=== PATIENT | female | born 1990 | race Caucasian/White ===

== ENCOUNTER 2018-07-13 11:30 | Emergency (ER) | payer BC ==
[2018-07-13] MEDS: TETRACAINE 0.5% 4 ML OPH LEFT EYE (12:39)
[2018-07-13] MEDS: FLUORESCEIN STRIP LEFT EYE (12:39)
[2018-07-13] MEDS: HYDROCODONE/APAP (5/325) TAB PO (12:55)
== END 2018-07-13 12:57 | disposition home or self-care (01) ==
LOC: FTE 11:30
DX: S05.92XA Unspecified injury of left eye and orbit, initial encounter (principal); W22.8XXA Striking against or struck by other objects, initial encounter; Y92.9 Unspecified place or not applicable
CPT/HCPCS: 99283